=== PATIENT | female | born 1990 | race Caucasian/White ===

== ENCOUNTER 2019-07-04 12:12 | Outpatient (REF) | payer BC, MEDICAID, SELFPAY ==
--- NOTE | 2019-07-04 09:05 | PAPFT_PTH ---
PATIENT: Gila Nickerson LOC: [facility]#:[id number] AGE/SX: 29/F ROOM: RE07/04/[address]: Micheal Hester : 1990 BED: DIS: 07/04/2019 SPEC #: [id number] RECD: 07/05/19 12:49 STATUS: CHRISTIAN DELA CRUZ #: [id number] CARRIE: 07/04/19 09:[address]: Micheal Hester DEPT: [facility] Cytology RECD BY: Jazlyn Hernandez Tissues: 1 - CX/ENDOCX FOR PAP SMEARS Procedures: PAP THIN PREP/UVM Screening HPV DNA PROBE Comments: [id number]
== END 2019-07-04 12:32 ==
LOC: NCHCN 12:12
PROVIDERS: PCP Physician Assistant Medical; Visit Provider Physician Assistant Medical
DX: Z12.4 Encounter for screening for malignant neoplasm of cervix (principal); Z11.51 Encounter for screening for human papillomavirus (HPV)
CPT/HCPCS: 88142; 87624

== ENCOUNTER 2019-08-23 09:12 | Outpatient (CLI) | payer BC, MEDICAID, SELFPAY ==
[2019-08-26 08:15] LABS: SARS-CoV-2 RNA Undetected (Undetected); SARS-CoV-2 Specimen Source Nasopharynx
== END 2019-08-23 09:32 ==
PROVIDERS: PCP Physician Assistant Medical; Visit Provider Physician Assistant Medical
DX: Z11.59 Encounter for screening for other viral diseases (principal)
CPT/HCPCS: U0003

== ENCOUNTER 2019-09-15 23:52 | Emergency (ER) | payer BC, MEDICAID, SELFPAY ==
--- NOTE | 2019-09-15 23:45 | DI.RAD_ITS ---
EXAM: XR HAND LT COMPLETE CLINICAL HISTORY: pain s/p fall. TECHNIQUE: 2D digital imaging was performed. COMPARISON: No exams were available for comparison FINDINGS: BONES: There is a comminuted fracture through the base of the proximal phalanx of the index finger. Fracture extends into the metacarpophalangeal joint. No bony destructive lesion is seen. JOINTS: No dislocation present. SOFT TISSUE: Swelling of the soft tissues of the left index finger. IMPRESSION: Comminuted intra-articular fracture through the base of the proximal phalanx of the left index finger . DATA REPOSITORY: RADIATION DOSE DELIVERED:
[2019-09-15 23:56] VITALS: BP 156/90; PULSE 78; RESP 16; TEMP 36.5; O2SAT 98
--- NOTE | 2019-09-15 23:57 | ED.GENADUL_ITS ---
Discharge Plan Disposition Patient Disposition: HOME Condition: Stable Discharge Details Chief Complaint: Orthopedic Clinical Impression: Hand fracture, left Primary Care Provider: Micheal Hester ED Provider: Gato Arechiga Home Meds and New Rx's Prescriptions: Continued norgestimate-ethinyl estradiol [Tri-Sprintec (28)] 0.18/0.215/0.25 mg-35 mcg (28) tablet 1 tab PO DAILY Qty: 84 RF: 3 sertraline 25 MG tablet 50 mg PO DAILY RF: 0 valacyclovir 1,000 MG tablet 1,000 mg PO BID Qty: 20 RF: 0 Discharge Instructions Instructions: Hand Fracture (ED) Additional Instructions: call orthopedics tuesday for an appointment if you have severe worsening pain return to the emergency department you can take 1000mg tylenol and 600mg ibuprofen every 6 hours for pain as needed Referrals: Richard Roman MD [ [facility] STAFF PHYSICIAN] - Medical Decision Making 29 yo female comes in with left hand pain that started after she was helping her daughter ride a bike when she fell and landed on her left hand. No head pain, neck pain or pain elsewhere other than the left hand. At the base of the index and middle finger is swollen and tender, does have full extension of the fingers but flexion at mcp joints limited due to pain is able to flex at the pip and dip joints normally and has normal pulses. Will xray to eval for fx xray shows nondisplaced fx at proximal 2nd digit.Placed in finger splint and will have her f/u with ortho Differential Diagnosis Differential Diagnosis: contusion, fracture Imaging Data Radiologic Study: Attestation: I personally reviewed and interpreted this imaging study as follows: Imaging: X-Ray Radiologist's impression: IMPRESSION: Comminuted hairline fracture at the base of the proximal phalanx of the 2nd digit with intra-articular extension of the fracture. HPI General Mode of arrival: ambulatory . Date/Time Provider Initiated Documentation: 09/15/19 23:56 . Limitations to Documentation: no limitations . Information obtained by: patient . History of Present Illness 29 year old F presents to the emergency department with the chief complaint of left hand pain, described as moderate, Quality is described as aching, and is localized to the left and upper extremity. Patient started experiencing this hour(s) (1) and it has been constant. No relieving factors improve symptom(s), No exacerbating factors reported . Patient did receive the following treatments prior to arrival, NSAID Related Data Home Medications Medication Instructions Recorded Confirmed sertraline 50 mg PO DAILY 06/28/15 09/16/19 valacyclovir 1,000 mg PO BID #20 tab 06/28/15 09/16/19 norgestimate-ethinyl estradiol 1 tab PO DAILY #84 tab 03/17/18 09/16/19 Previous Rx's Medication Instructions Recorded valacyclovir 1,000 mg PO BID #20 tab 06/28/15 norgestimate-ethinyl estradiol 1 tab PO DAILY #84 tab 03/17/18 Allergies Allergy/AdvReac Type Severity Reaction Status Date / Time No Known Allergies Allergy Unverified 09/16/19 00:01 Review of Systems All systems reviewed & are unremarkable except as noted in HPI and below Constitutional Constitutional: Denies chills and Denies fever(s) Cardiovascular Cardiovascular: Denies chest pain and Denies dyspnea Respiratory Respiratory: Denies dyspnea Gastrointestinal Gastrointestinal: Denies abdominal pain and Denies vomiting [facility] Social History (Updated 03/15/18 @ 11:34 by Adilia Lizarraga LPN) Smoking/Tobacco Use Status: Current every day Tobacco Type: cigarettes Alcohol Intake: current Alcohol Intake frequency: a few times a month Drug use: Never Substance use type: does not use Household members: family and other Details: Partner Donny and daughters Ximena and Marce Number of Children: 2 Seatbelt use: always Do you feel safe at home: Yes Do you feel safe in your relationship?: Yes Female Reproductive History Menstrual control method: pills History History 2 Para Hx # Term Pregnancies 2 Multiple births Hx # Pregnancies Ectopic pregnancies AB induced Hx Number of Living Children AB spontaneous Exam Const General: no acute distress Orientation: alert HENMT Head: normal to inspection Ears: external ears normal General nose exam: external nose normal Mouth: moist mucous membranes Eyes General: appearance normal, both eyes and all related structures Neck Neck: normal visual inspection Resp Effort & Inspection: normal respiratory effort and able to speak in complete sentences Cardio Rate: regular rate Skin General skin exam: no rashes or lesions noted Neuro General: patient alert and patient oriented x3 Extrem General: full ROM and capillary refill normal Psych Mental Status: mental status grossly normal
--- NOTE | 2019-09-16 00:16 | DI.VRAD_ITS ---
PROCEDURE INFORMATION: Exam: XR Left Hand Exam date and time: 09/15/2019 12:05 AM Age: 29 years old Clinical indication: Hand; Left; Patient HX: Pain S/P fall TECHNIQUE: Imaging protocol: XR Left hand. Views: 3 or more views. COMPARISON: No relevant prior studies available. FINDINGS: Bones/joints: Comminuted hairline fracture at the base of the proximal phalanx of the 2nd digit with intra-articular extension of the fracture. Soft tissues: Normal. IMPRESSION: Comminuted hairline fracture at the base of the proximal phalanx of the 2nd digit with intra-articular extension of the fracture. Dictated and Authenticated by: Garrett Ordaz MD. Ordering:GEETA Hoskins MD
== END 2019-09-16 00:35 | disposition home or self-care (01) ==
PROVIDERS: Emergency Provider Emergency Medicine; PCP Physician Assistant Medical
DX: S63.641A Sprain of metacarpophalangeal joint of right thumb, initial encounter (principal); W01.0XXA Fall on same level from slipping, tripping and stumbling without subsequent striking against object, initial encounter
CPT/HCPCS: 99283; 73130

== ENCOUNTER 2019-10-17 09:29 | Outpatient (CLI) | payer BC, MEDICAID, SELFPAY ==
--- NOTE | 2019-10-17 09:15 | DI.RAD_ITS ---
EXAM: XR FINGER LT INDEX INDICATION: F/U FRACTURE. COMPARISON: CR,XR XR HAND LT COMPLETE from 09/16/2019 TECHNIQUE: 2D digital imaging was performed. FINDINGS: There has been no change in alignment of the previously noted fracture at the base of the proximal p halanx of the index finger. DATA REPOSITORY: RADIATION DOSE DELIVERED:
== END 2019-10-17 09:49 ==
PROVIDERS: PCP Physician Assistant Medical; Referring Provider Physician Assistant Medical; Visit Provider Orthopaedic Surgery
DX: S62.641D Nondisplaced fracture of proximal phalanx of left index finger, subsequent encounter for fracture with routine healing (principal)
CPT/HCPCS: 73140

== ENCOUNTER 2020-07-04 19:58 | Outpatient (REF) | payer BC, MEDICAID, SELFPAY ==
[2020-07-04 19:42] LABS: HCG Qual (Serum) Positive
== END 2020-07-04 19:59 | disposition home or self-care (01) ==
LOC: NCHCN 19:58
PROVIDERS: PCP Physician Assistant Medical; Visit Provider Physician Assistant Medical
DX: N91.1 Secondary amenorrhea (principal)
CPT/HCPCS: 84703

== ENCOUNTER 2020-08-20 03:32 | Outpatient (CLI) | payer BC, MEDICAID, SELFPAY ==
[2020-08-20 14:34] LABS: Kit/Specimen SENT
[2020-08-20 14:38] LABS: Abs Immature Grans 0.04 10^3/uL (0.0-0.06); Absolute Basophil Count 0.06 10^3/uL (0.0-0.2); Absolute Eosinophil Count 0.09 10^3/uL (0.0-0.7); Absolute Monocyte Count 0.72 10^3/uL (0.1-0.8); Absolute Neutrophil Count 7.74 10^3/uL (1.2-6.7); Basophils % 0.6; Eosinophils % 0.8; HCT 39.2 % (36.0-46.0); HGB 12.9 g/dL (11.2-15.7); Immature Grans % 0.4; Lymphocytes % 18.8; MCH 30.1 pg (27.0-33.0); MCHC 32.9 % (32.0-36.0); MCV 91.4 fL (80-95); MPV 9.2 fL (8.0-11.0); Monocytes % 6.8; Neutrophils % 72.6; Nucleated RBC 0 %; Platelet Count 270 10^3/uL (130-400); RBC 4.29 10^6/uL (3.93-5.22); RDW 13.4 % (11.7-14.6); RDW-SD 44.7 fL; WBC 10.65 10^3/uL (4.4-10.8)
[2020-08-20 15:18] LABS: TSH (W/Ref FT4) 0.94 uIU/mL (0.36-3.74)
[2020-08-20 16:09] LABS: *AMPHETAMINES SCREEN URINE Negative (Negative); *BARBITURATES SCREEN URINE Negative (Negative); *BENZODIAZEPINES SCREEN URINE Negative (Negative); Cannabinoids THC Negative (Negative); Cocaine Screen,Urine Negative (Negative); METHADONE URINE SCREEN Negative (Negative); OPIATES URINE SCREEN Negative (Negative)
[2020-08-20 16:43] LABS: Tricyclic Antidepressants Negative (Negative)
[2020-08-21 08:58] LABS: Hepatitis B Surface Ag Negative (Negative)
[2020-08-21 09:36] LABS: HIV-1/2 Ag & Ab Screen Negative (Negative)
[2020-08-21 09:52] LABS: Varicella IgG Antibody Positive (See Note)
[2020-08-21 09:58] LABS: Rubella IgG Ab (UVM) Positive (See Note)
[2020-08-21 10:00] LABS: Hepatitis C Ab w Rflx HCV PCR Negative (Negative)
[2020-08-21 14:50] LABS: Chlamydia Result Negative (Negative); GC Result Negative (Negative)
[2020-08-21 23:26] LABS: Syphilis Total Ab w/Reflex Nonreactive (Nonreactive)
[2020-08-26 11:53] LABS: Buprenorphine Negative ng/mL (Cutoff: 5.0); Norbuprenorphine Negative ng/mL (Cutoff: 2.5)
== END 2020-08-20 03:33 | disposition home or self-care (01) ==
PROVIDERS: PCP Physician Assistant Medical; Visit Provider Advanced Practice Midwife
DX: Z34.91 Encounter for supervision of normal pregnancy, unspecified, first trimester (principal); Z11.4 Encounter for screening for human immunodeficiency virus [HIV]; Z11.59 Encounter for screening for other viral diseases; Z11.3 Encounter for screening for infections with a predominantly sexual mode of transmission; Z01.84 Encounter for antibody response examination
CPT/HCPCS: 80307; 86787; 86803; 86850; 86900; 86901; 87340; 87389; 87491; 87591; 84443; 85025; 86762; 86780; 87086; 87480; 87510; 87660

== ENCOUNTER 2020-12-16 03:39 | Outpatient (CLI) | payer BC, MEDICAID, SELFPAY ==
[2020-12-16 16:14] LABS: HCT 33.3 % (36.0-46.0); HGB 10.8 g/dL (11.2-15.7); MCH 30.4 pg (27.0-33.0); MCHC 32.4 % (32.0-36.0); MCV 93.8 fL (80-95); MPV 9.2 fL (8.0-11.0); Platelet Count 249 10^3/uL (130-400); RBC 3.55 10^6/uL (3.93-5.22); RDW 13.6 % (11.7-14.6); RDW-SD 46.5 fL; WBC 11.81 10^3/uL (4.4-10.8)
[2020-12-16 16:28] LABS: Glucose,1 Hr (Glucola) 107 mg/dL (80-140)
== END 2020-12-16 03:40 | disposition home or self-care (01) ==
LOC: LBO 03:39
PROVIDERS: PCP Physician Assistant Medical; Visit Provider Advanced Practice Midwife
DX: Z34.92 Encounter for supervision of normal pregnancy, unspecified, second trimester (principal); Z3A.27 27 weeks gestation of pregnancy; Z01.84 Encounter for antibody response examination
CPT/HCPCS: 36415; 82950; 85027; 86850; 90384

== ENCOUNTER 2021-02-18 10:03 | Outpatient (REF) | payer BC, MEDICAID, SELFPAY ==
[2021-02-18 12:51] LABS: Tricyclic Antidepressants Negative (Negative)
[2021-02-18 12:56] LABS: *AMPHETAMINES SCREEN URINE Negative (Negative); *BARBITURATES SCREEN URINE Negative (Negative); *BENZODIAZEPINES SCREEN URINE Negative (Negative); Cannabinoids THC Negative (Negative); Cocaine Screen,Urine Negative (Negative); METHADONE URINE SCREEN Negative (Negative); OPIATES URINE SCREEN Negative (Negative)
[2021-02-24 19:41] LABS: Buprenorphine Negative ng/mL (Cutoff: 5.0); Norbuprenorphine Negative ng/mL (Cutoff: 2.5)
== END 2021-02-18 10:04 | disposition home or self-care (01) ==
LOC: LBN 10:03
PROVIDERS: PCP Physician Assistant Medical; Visit Provider Advanced Practice Midwife
DX: Z34.93 Encounter for supervision of normal pregnancy, unspecified, third trimester (principal); Z3A.36 36 weeks gestation of pregnancy
CPT/HCPCS: 80307; 87081

== ENCOUNTER 2021-03-11 10:36 | Outpatient (CLI) | payer BC, MEDICAID, SELFPAY ==
[2021-03-11 10:56] VITALS: BP 126/87; PULSE 68; TEMP 36.6
[2021-03-11 11:02] VITALS: BP 126/87; PULSE 68
[2021-03-11 11:24] VITALS: BP 132/88; PULSE 66
[2021-03-11 11:47] LABS: HCT 38.8 % (36.0-46.0); HGB 12.7 g/dL (11.2-15.7); MCH 31.3 pg (27.0-33.0); MCHC 32.7 % (32.0-36.0); MCV 95.6 fL (80-95); Platelet Count 217 10^3/uL (130-400); RBC 4.06 10^6/uL (3.93-5.22); RDW-SD 49.6 fL; WBC 9.43 10^3/uL (4.4-10.8)
[2021-03-11 12:04] LABS: ALT 17 U/L (14-59); AST 21 U/L (15-37); Albumin 2.8 g/dL (3.4-5.0); Alkaline Phosphatase 225 U/L (46-116); Anion Gap 8.1 mmol/L (3-11); BUN 6 mg/dL (7-18); Bilirubin, Total 0.3 mg/dL (0.2-1.0); CO2 24.9 mmol/L (21.0-32.0); CREATININE 0.5 mg/dL (0.55-1.02); Calcium 9.4 mg/dL (8.5-10.1); Chloride 104 mmol/L (98-107); Glucose 72 mg/dL (74-106); Sodium 137 mmol/L (136-145); Total Protein 6.8 g/dL (6.4-8.2); Uric Acid 3.7 mg/dL (2.6-6.0)
[2021-03-11 13:07] LABS: COMMENT (LAB VIEW ONLY) 19.21 mg/dL; PROTEIN < 6.0 mg/dL
--- NOTE | 2021-03-13 15:50 | W.OBNST ---
Date of service: 03/11/21 Time of Service: 12:00 NST Evaluation Reason for NST Reasons for Nonstress Test: GESTATIONAL HYPERTENSION Reason for NST Other: Pt states she has only had two high BPs, both after drinking coffee. Gestational Age Gestational Age in Weeks and Days: 38 Weeks and 5Days Test and Monitor Explained Test/Monitor Explained: Test Explained, Monitor Explained and Patient Verbalized Understanding Vital Signs Blood Pressure: 126/87 Pulse: 68 Temperature: 97.8 F Urine Results Urine Protein: Negative Urine Ketones: Negative Urine Glucose: Negative Urine Blood: Negative NST Information Date on Monitor: 03/11/21 Time on Monitor: 10:45 NST Interventions: PO Hydration NST Evaluation Patient States Movement: Present FHR Baseline: 130 Variability: Moderate 6-25 bpm Accelerations: 15x15 Decelerations: None NST Results: Reactive Note NST Note Note: preeclampsia panel taken and castro was discharged to home to await lab results. SVE 2 cms 60% effaced and firm/posterior. Signs of labor reviewed. Signs of preeclampsia reviewed. NST Reviewed and Verified by: Katya Hurley
[2021-03-13 15:51] VITALS: BP 126/87; PULSE 68; TEMP 36.6
== END 2021-03-11 11:40 | disposition home or self-care (01) ==
LOC: BCD 10:41 → OBS 10:45
PROVIDERS: Advanced Practice Midwife; PCP Physician Assistant Medical; Visit Provider Advanced Practice Midwife
DX: O13.3 Gestational [pregnancy-induced] hypertension without significant proteinuria, third trimester (principal); Z3A.38 38 weeks gestation of pregnancy
CPT/HCPCS: 59025; 36415; 80053; 85027; 82565; 84156; 84550

== ENCOUNTER 2021-03-13 09:01 | Inpatient (IN) | payer BC, MEDICAID, SELFPAY ==
[2021-03-13] VITALS (13 sets, daily range): BP systolic 110–140; BP diastolic 76–91; PULSE 70–87; RESP 16; TEMP 36.6–36.9
--- NOTE | 2021-03-13 12:18 | HPE_ITS ---
Date of service: 03/13/21 Time of Service: 12:19 Assessment and Plan Assessment and plan (1) Spontaneous onset of labor: Status: Acute Assessment and plan: Admit to Center. Comfort measures. Covid- 19 test. Anticipate . OB-HPI Labor/Delivery History of Present Illness Reason for Visit: Labor Chief Complaint: Uterine Contractions. SAMANTHA Calculator Estimated Delivery Date Method Current WG Current Estimate 03/15/21 LMP (Certain) 39w 5d Other Estimates 03/21/21 Ultrasound #1 38w 6d Comments: Gila was admitted to observation with regular contractions. Her contractions are now stronger and there is cervical change noted and she is admitted in active labor. History of Present Expected Delivery Route/Plan - CNM FOB - Rubio Olmos (third child together) BG GBS negative Would like to use the tub Specific Issues/Plan 1. 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 second labor precipitous 2 hours but 7 years ago 3. Rh negative: RhoGam @ 28 wks, given 12/17/20 4. [place] result low prob x3, female, declines CF/SMA screen 5. Gila declines covid vaccine, her partner is fully vaccinated 6. Planning vasectomy for Rubio 7. varicose vein on inside of right knee, discussed montioring anemia - Hgb 10.4- taking blood builder Assessment: History Reviewed & Current [facility] Medical History (Updated 03/13/21 @ 12:23 by Katya Hurley CNM) Contraceptive management 06/2016 Mirena inserted. Depression Genital herpes Pelvic pain episode 05/2016. 37mm cyst R ovary. Family History (Updated 08/20/20 @ 14:00 by Katya Love CNM) Maternal Grandmother Hypertension FH: thyroid disease Mother Hypertension Father Asthma Cancer passed age 46 from unknown CA type Social History (Updated 08/20/20 @ 13:08 by Katya Love CNM) Smoking/Tobacco Use Status: Current every day Tobacco Type: cigarettes Tobacco: How many years used: 4 Smoking risk assessment performed?: Yes Alcohol Intake: current Alcohol Intake frequency: a few times a month Drug use: Never Substance use type: does not use Household members: family and other Details: Partner Donny and daughters Ximena and Marce Number of Children: 2 Seatbelt use: always Do you feel safe at home: Yes Do you feel safe in your relationship?: Yes Female Reproductive History Menstrual control method: pills History History 4 Para 2 Hx # Term Pregnancies 2 Multiple births 0 Hx # Pregnancies 0 Ectopic pregnancies 0 AB induced 0 Hx Number of Living Children 2 AB spontaneous 1 Past Pregnancies Del. Date GA/Weeks # Outcome Route Wgt Sex Labor Lgth Anesthes ia Location Prov Complic 04/25/10 38 No Successful vaginal 7 lb 13 oz Female 8hr Hussein 09/25/13 39 No Successful vaginal 8 lb 3 oz Female 2 hr Fabby 10/21/16 Unsuccessful Delivery Date: 04/25/10 no complications Katya Rodriguez Delivery Date: 09/25/13 no complications. FelicityKatya Murphy Delivery Date: 10/21/16 conception on OCs Katya Hurley Meds Allergies and Home Medications Allergies Allergy/AdvReac Type Severity Reaction Status Date / Time No Known Allergies Allergy Unverified 03/11/21 09:41 Home Medications Medication Instructions Recorded Confirmed Type sertraline 50 mg PO DAILY 06/28/15 03/13/21 History flinstone 2 tab PO 08/07/20 02/25/21 History valacyclovir 500 mg tablet 500 mg PO DAILY PRN 10/22/20 03/13/21 History Blood builder 1 tab .ROUTE QDAY #60 tab 01/28/21 03/13/21 Rx Exam Physical Exam Vital signs: Temp Pulse Resp BP 98.4 F 74 16 137/86 03/13/21 09:13 03/13/21 09:41 03/13/21 09:13 03/13/21 09:41 Vital Signs Reviewed: Yes Constitutional Constitutional: mild distress Detailed Labor and Delivery Exam Dilation: 3 Effacement (%): 80 station: -1 Cervix position: posterior Consistency: soft Ratliff Score: Cervical Points Exam 0 1 2 3 Dilation Closed 1-2cm 3-4 cm 5-6cm Effacement 0-30% 40-50% 60-70% 80% Consistency Firm Medium Soft Station -3 -2 -1,0 +1,+2 Position Posterior Mid Anterior Amniotic Membrane Status: Intact Contraction Frequency(min): every 3-4 Contraction Duration(sec): 50-60 Contraction Intensity: Moderate Fetus A Heart Rate Baseline: 130 Monitor Accelerations: 15 X 15 Monitor Decelerations: None Variability: Moderate (6-25 BPM) Presentation: Cephalic Categories: Category I Est. Weight: 7 Respiratory Exam Respiratory Exam: Normal Cardiovascular Exam Cardiovascular Exam: Normal Abdominal Exam Abdominal Exam: Normal Rectal Exam Rectal Exam: Normal Exam Exam: Normal Skin Exam Skin Exam: Normal Psychiatric Exam Psychiatric Exam: Normal Risk Assessment Risk for Shoulder Dystocia Historical/Initial OB: NEGATIVE FOR: Pelvic Abnormality, Pre- BMI>30, Previous Shoulder Dystocia or Previous Macrosomia 40 Weeks: NEGATIVE FOR: EFW> 4500 gms, Maternal Weight Gain >40lb or Post Dates Increased Risk?: No Date/Initial: 08/20/20 Risk for Pre-Eclampsia Daily Dose ASA Indicated: No Date Initiated/Initials: 08/20/20 Yes, if one or more: NEGATIVE FOR: Hx Pre-E/Gest HTN, Chronic HTN, Multiple Gestation, Pre-gestational DM, Renal Disease, Systemic Lupus or APA Syndrome Yes, if 2 or more: NEGATIVE FOR: Nulliparity, Age>= 35 yrs, >10yr btwn pregnancies, BMI>30, ethinicty, Mother/Sister w/ Pre-E or Previous IUGR Risk for Post- Hemorrhage Initial: NEGATIVE FOR: Multiple Gestation, Previous PPH, Known Clotting Deficiency, Grand Multiparity or Anticoagulation At Risk?: No Interventions: 08/20/20 Risks Reviewed Risks Reviewed Upon Admission: Yes
[2021-03-13 12:58] LABS: HCT 36.3 % (36.0-46.0); HGB 12.1 g/dL (11.2-15.7); MCH 31.9 pg (27.0-33.0); MCHC 33.3 % (32.0-36.0); MCV 95.8 fL (80-95); MPV 10.1 fL (8.0-11.0); Platelet Count 209 10^3/uL (130-400); RBC 3.79 10^6/uL (3.93-5.22); RDW-SD 49.6 fL; WBC 12.07 10^3/uL (4.4-10.8)
[2021-03-13] MEDS: Oxytocin 10 UNITS/ML VIAL IM (14:38)
--- NOTE | 2021-03-13 14:38 | PLAC_PTH ---
PATIENT: Gila Nickerson LOC: OBS U#:[id number] AGE/SX: 31/F ROOM: OBS.304 RE03/13/[address]: Katya Hurley : 1990 BED: A DIS: 03/14/2021 SPEC #: [id number] RECD: 03/13/21 17:37 STATUS: CHRISTIAN REQ #: [id number] CARRIE: 03/13/21 14:[address]: Katya Hurley DEPT: Surgical Specimen RECD BY: Jazlyn Hernandez ENTERED: 03/13/21 17:37 SP TYPE: PLAC OTHR DR: Micheal Hester Tissues: 1 - PLACENTA (3RD TRIMESTER) Procedures: GROSS AND MICRO LEVEL 5 Comments: [id number]
--- NOTE | 2021-03-13 15:11 | W.OBDELIVERY ---
Date of service: 03/13/21 Time of Service: 15:11 OB Labor/ Delivery Information Baby A Delivery Delivery Method: Spontaneaous Presentation: Vertex Cephalic Position: Vertex Vertex Position: Left Occipital Anterior Cord Description-Baby A: 3 Vessels Amniotic Fluid: Meconium (light) Estimated Blood Loss: 450 Delivery Outcome: Liveborn Infant Transferred: Remains with Mother Note: FHTs 120s during first stage of labor. Began having an urge to bear down and Gila was examined and 8 cms dilated. FHTs 120s in second stage by auscultation. Progressed quickly to full dilation and began pushing. Second stage huddle was done. There was a gush of light meconium stained fluid after bearing down. Five minutes after ROM, there was spontaneous delivery of female delivered in ALPHONSO position. Baby was placed on mother's abdomen and dried and stimulated. Spontaneous cry. Cord was clamped and cut by the baby's father. The placenta delivered spontaneously and appears to by intact with a three vessel cord. It is a bilobed placenta with connecting vessels. The placenta inserted in one lobe with vessels extending to second lobe with one vessel in the membranes. Pitocin 10 units was administered after delivery of the placenta. The bleeding was bright and heavy with massage and 800 mcg of misoprostol was given VT. A bimanual exam was performed with extraction of 100 cc of clots from the cervix. The perineum was inspected and a small perineal laceration was repaired with 3 continuous 3-0 vicryl sutre under local anesthetic. The baby did breastfeed. After delivery, Mother and baby and father of the baby were stable and bonding well in the delivery room and there were no complications. Stages of Labor Onset of Labor Date: 03/13/21 Onset of Labor Time: 06:30 ROM Baby A: 03/13/21 ROM Baby A: 14:23 Procedure Procedures: Evacuation of Hematoma (Bimanual exam and approximately 100 cc of clots extracted from the cervix) Interventions Repair of Laceration Type: Perineal , Laceration Extension: First Degree . Sponge Count Correct: No Sponges Placed in Vagina , Sharp Count Correct: Yes . Laceration Repair Note: repaired with 3-0 vicryl suture under local anesthetic x 3 continuous sutures
[2021-03-13] MEDS: miSOPROStol 200 MCG TAB 400 MCG SL (15:18)
[2021-03-13] MEDS: Lidocaine 1% Multi-Dose 20 ML VIAL IJ (15:20)
[2021-03-13] MEDS: Acetaminophen 325 MG TAB 650 MG PO ×2 (15:52→22:10)
[2021-03-13] MEDS: Ibuprofen 600 MG TAB PO ×2 (15:52→22:09)
[2021-03-13 22:44] LABS: Source Nasal/Nares
[2021-03-13 23:45] LABS: COVID-19 PCR Negative (Negative)
[2021-03-14] MEDS: Ibuprofen 600 MG TAB PO (06:00)
[2021-03-14] MEDS: Acetaminophen 325 MG TAB 650 MG PO (06:00)
[2021-03-14 07:38] LABS: HCT 32.6 % (36.0-46.0); HGB 10.9 g/dL (11.2-15.7); MCH 31.7 pg (27.0-33.0); MCHC 33.4 % (32.0-36.0); MCV 94.8 fL (80-95); MPV 9.9 fL (8.0-11.0); Platelet Count 183 10^3/uL (130-400); RBC 3.44 10^6/uL (3.93-5.22); RDW 14.1 % (11.7-14.6); RDW-SD 48.4 fL; WBC 12.62 10^3/uL (4.4-10.8)
[2021-03-14 08:15] VITALS: BP 133/85; PULSE 67; RESP 16; TEMP 36.5
[2021-03-14] MEDS: Docusate Sodium 100 MG CAP PO (08:28)
--- NOTE | 2021-03-14 14:36 | W.PM.OBDISCH ---
Date of service: 03/14/21 Time of Service: 14:36 DS: Diagnosis Discharge Diagnosis (1) Spontaneous onset of labor: Status: Acute Asessment and Plan: Caring for baby independently. Pain is managed well with oral analgesics. Voiding without difficulty. well. Family requests discharge today and baby is discharged. A - stable mother and baby , Post day 1, RH neg P - Discharge to home today. Routine post instructions. [facility] Receiving rhogam prior to discharge. Discharge Plan Disposition Condition: Good Discharge Details Reason For Visit: Labor Admit Date/Time: 03/13/21 12:18 Admit Provider: Katya Hurley Attending Provider: Katya Hurley Primary Care Provider: Micheal Hester Home Meds and New Rx's Prescriptions: Continued flinstone 2 tab PO DAILY RF: 0 sertraline 25 MG tablet 50 mg PO DAILY RF: 0 Discontinued valacyclovir 500 mg tablet 500 mg PO DAILY PRNRF: 0 Blood builder 1 tab .ROUTE QDAY Qty: 60 RF: 0 Discharge Instructions Activity:: Activity as Tolerated Activity:: Activity as Tolerated Equipment/Supplies:: No Equipment Needed Diet:: As Tolerated OB:DS Summary Summary Vaginal Delivery Method: Spontaneaous Episiotomy Description: None Laceration Description: Perineal Laceration Extension: First Degree complications OB DS: none Contraception Discussed Contraception Discussed: Yes Contraceptive Plan: Control Pill/Patch, [place] Gender-Baby A: Female Status at Discharge Functional status at discharge: independent ambulation Overall status at discharge: patient is back to baseline Mental Status: mental status grossly normal Speech and Movement: speech and movement normal Mood: congruent mood Affect: normal affect Exam Physical Exam Vital signs: Temp Pulse Resp BP 97.7 F 67 16 133/85 03/14/21 08:15 03/14/21 08:15 03/14/21 08:15 03/14/21 08:15 Vital Signs Reviewed: Yes Constitutional Constitutional: no acute distress Respiratory Exam Respiratory Exam: Normal Cardiovascular Exam Cardiovascular Exam: Normal Fundal Exam Fundus: Below Umbilicus and Firm Rectal Exam Rectal Exam: Normal Exam Patient deferred: external exam External: Present normal urethra appearance Comments: no edema, no ecchymosis Extremities Exam Extremity Exam: Normal Skin Exam Skin Exam: Normal Psychiatric Exam Psychiatric Exam: Normal [facility] Medical History (Updated 03/13/21 @ 12:23 by Katya Hurley CNM) Contraceptive management 06/2016 Mirena inserted. Depression Genital herpes Pelvic pain episode 05/2016. 37mm cyst R ovary. Family History (Updated 08/20/20 @ 14:00 by Katya Love CNM) Maternal Grandmother Hypertension FH: thyroid disease Mother Hypertension Father Asthma Cancer passed age 46 from unknown CA type Social History (Updated 08/20/20 @ 13:08 by Katya Love CNM) Smoking/Tobacco Use Status: Current every day Tobacco Type: cigarettes Tobacco: How many years used: 4 Smoking risk assessment performed?: Yes Alcohol Intake: current Alcohol Intake frequency: a few times a month Drug use: Never Substance use type: does not use Household members: family and other Details: Partner Donny and daughters Landry Number of Children: 2 Seatbelt use: always Do you feel safe at home: Yes Do you feel safe in your relationship?: Yes Female Reproductive History Menstrual control method: pills History History 4 Para 2 Hx # Term Pregnancies 2 Multiple births 0 Hx # Pregnancies 0 Ectopic pregnancies 0 AB induced 0 Hx Number of Living Children 2 AB spontaneous 1 Past Pregnancies Del. Date GA/Weeks # Outcome Route Wgt Sex Labor Lgth Anesthesia Location Prov Complic 04/25/10 38 No Successful vaginal 7 lb 13 oz Female 8hr Hussein 09/25/13 39 No Successful vaginal 8 lb 3 oz Female 2 hr Fabby 10/21/16 Unsuccessful Delivery Date: 04/25/10 no complications Katya Rodriguez Delivery Date: 09/25/13 no complications. Katya Patricia Delivery Date: 10/21/16 conception on OCs Katya Hurley DS: Data Vitals/I&O Vitals and I&O: Vital Signs Temperature 97.7 F 03/14/21 08:15 Pulse 67 03/14/21 08:15 Pulse Rhythm Regular 03/14/21 08:15 Respiratory Rate 16 03/14/21 08:15 Respiratory Depth Normal 03/14/21 08:15 Blood Pressure 133/85 03/14/21 08:15 Blood Pressure Mean 101 03/14/21 08:15 Oxygen Delivery Method Room Air 03/13/21 10:28 Oxygen Flow Rate 0 03/13/21 10:28 Pain Level 2 03/13/21 22:09 Intake & Output 03/13/21 03/14/21 03/14/21 23:59 11:59 23:59 Output Total 500 / 900 Balance -500 / -900 Output: Urine 500 / 900 Other: Urine Color Yellow Data Completed and Pending Labs on day of discharge: Labs from last 24 hours 03/14/21 03/13/21 07:31 22:43 WBC 12.62 H RBC 3.44 L Hgb 10.9 L Hct 32.6 L MCV 94.8 MCH 31.7 MCHC 33.4 RDW 14.1 Plt Count 183 MPV 9.9 COVID-19 Source Nasal/Nares SARS-CoV-2 (PCR) Negative
--- NOTE | 2021-03-16 15:51 | W.OBDELIVERY ---
Date of service: 03/13/21 Time of Service: 15:51 OB Labor/ Delivery Information Baby A Delivery Note: Date of service: 03/13/21 Time of Service: 15:11 OB Labor/ Delivery Information Baby A Delivery Delivery Method: Spontaneaous Presentation: Vertex Cephalic Position: Vertex Vertex Position: Left Occipital Anterior Cord Description-Baby A: 3 Vessels Amniotic Fluid: Meconium (light) Estimated Blood Loss: 450 Delivery Outcome: Liveborn Transferred: Remains with Mother Note: FHTs 120s during first stage of labor. Began having an urge to bear down and Gila was examined and 8 cms dilated. FHTs 120s in second stage by auscultation. Progressed quickly to full dilation and began pushing. Second stage huddle was done. There was a gush of light meconium stained fluid after bearing down. Five minutes after ROM, there was spontaneous delivery of female delivered in ALPHONSO position. Baby was placed on mother's abdomen and dried and stimulated. Spontaneous cry. Cord was clamped and cut by the baby's father. The placenta delivered spontaneously and appears to by intact with a three vessel cord. It is a bilobed placenta with connecting vessels. The placenta inserted in one lobe with vessels extending to second lobe with one vessel in the membranes. Pitocin 10 units was administered after delivery of the placenta. The bleeding was bright and heavy with massage and 800 mcg of misoprostol was given LA. A bimanual exam was performed with extraction of 100 cc of clots from the cervix. The perineum was inspected and a small perineal laceration was repaired with 3 continuous 3-0 vicryl sutre under local anesthetic. The baby did breastfeed. After delivery, Mother and baby and father of the baby were stable and bonding well in the delivery room and there were no complications. Stages of Labor Onset of Labor Date: 03/13/21 Onset of Labor Time: 06:30 ROM Baby A: 03/13/21 ROM Baby A: 14:23 Providers Nurse Christmas Tree Grader: Katya Hurley Nurse: Bridger Barreto Nurse: Andrew Blanchard Labor/Delivery Information Steroids Given: None Reason Steroids Not Administered: N/A Group Beta Strep: Negative Antibiotics Administered: No Medication in Delivery: pitocin IM misoprostil 800 mcg Shoulder Dystocia: No Stages of Labor Onset of Labor Date: 03/13/21 Onset of Labor Time: 06:30 Complete Dilatation Date: 03/13/21 Complete Dilatation Time: 14:22 Labor - Stage 1 Duration: 0 minutes ROM Baby A: 03/13/21 ROM Baby A: 14:23 ROM Total Time- Baby A: [id number] Infant Delivery Date-Baby A: 03/13/21 Delivery Time-Baby A: 14:26 Labor Stage 2 Duration: 4 minutes Placenta Delivery Date-Baby A: 03/13/21 Placenta Delivery Time-Baby A: 14:38 Labor-Stage 3 Duration: 12 minutes Total Length of Labor-Baby A: 7 hours and 56 minutes Placenta Status: Delivered Baby A Gender: Female Gestational Status: Term (39-41.6 wks) Gestational Age in Weeks/Days: 38 Weeks and 5 Days Score-1 Minute Interval(Baby A) Heart Rate-1 minute: 100 BPM or Greater Respiratory Effort- 1 minute: Spontaneous/Strong Cry Muscle Tone-1 minute: Active Movement Reflex Response-1 minute: Prompt Response Color-1 minute: Pallor or Cyanosis Total Score-1 minute: 8 Score-5 Minute Interval(Baby A) Heart Rate- 5 minute: 100 BPM or Greater Respiratory Effort-5 minute: Spontaneous/Strong Cry Muscle Tone-5 minute: Active Movement Reflex Response-5 minute: Prompt Response Color-5 minute: Bluish Hands or Feet Total Score- 5 minute: 9 Procedure Procedures: Evacuation of Hematoma (Evacuation of Hematoma (Bimanual exam and approximately 100 cc of clots extracted from the cervix)) Interventions Repair of Laceration Type: Perineal , Laceration Extension: First Degree . Sponge Count Correct: No Sponges Placed in Vagina , Sharp Count Correct: Yes . Laceration Repair Note: repaired with 3-0 vicryl suture under local anesthetic x 3 continuous sutures Hemorrrhage Note Total Blood Loss for PPH Event Quantitative Blood Loss: 450
== END 2021-03-14 16:17 | disposition home or self-care (01) | DRG 806 ==
PROVIDERS: Admitting Provider Advanced Practice Midwife; PCP Physician Assistant Medical; Visit Provider Advanced Practice Midwife
DX: O98.32 Other infections with a predominantly sexual mode of transmission complicating childbirth (principal); O36.0930 Maternal care for other rhesus isoimmunization, third trimester, not applicable or unspecified; Z37.0 Single live birth; O71.7 Obstetric hematoma of pelvis; O77.0 Labor and delivery complicated by meconium in amniotic fluid; O70.0 First degree perineal laceration during delivery; A60.00 Herpesviral infection of urogenital system, unspecified; O99.02 Anemia complicating childbirth; D64.9 Anemia, unspecified; O99.344 Other mental disorders complicating childbirth; F32.A Depression, unspecified; O99.334 Smoking (tobacco) complicating childbirth; F17.210 Nicotine dependence, cigarettes, uncomplicated; O43.193 Other malformation of placenta, third trimester; Z3A.39 39 weeks gestation of pregnancy; Z20.822 Contact with and (suspected) exposure to COVID-19
CPT/HCPCS: 36415; 85027; 85461; 86850; 86900; 86901; 87635; 90384; 88307; G0378; J2590; J2790

== ENCOUNTER 2021-09-14 19:50 | Outpatient (REF) | payer BC, MEDICAID, SELFPAY ==
[2021-09-14 15:29] LABS: Abs Immature Grans 0.01 10^3/uL (0.0-0.06); Absolute Basophil Count 0.09 10^3/uL (0.0-0.2); Absolute Eosinophil Count 0.15 10^3/uL (0.0-0.7); Absolute Lymphocyte Count 2.17 10^3/uL (1.2-3.4); Absolute Monocyte Count 0.45 10^3/uL (0.1-0.8); Absolute Neutrophil Count 2.97 10^3/uL (1.2-6.7); Basophils % 1.5; Eosinophils % 2.6; HCT 39.5 % (36.0-46.0); HGB 12.6 g/dL (11.2-15.7); Immature Grans % 0.2; Lymphocytes % 37.2; MCH 29.7 pg (27.0-33.0); MCHC 31.9 % (32.0-36.0); MCV 93.2 fL (80-95); MPV 9.6 fL (8.0-11.0); Monocytes % 7.7; Neutrophils % 50.8; Platelet Count 264 10^3/uL (130-400); RBC 4.24 10^6/uL (3.93-5.22); RDW 13.4 % (11.7-14.6); WBC 5.84 10^3/uL (4.4-10.8)
[2021-09-14 15:43] LABS: Calculated LDL 131 mg/dL (<100); Cholesterol 216 mg/dL (<200); HDL Cholesterol 75 mg/dL (40-60); Triglyceride 51 mg/dL (<150)
== END 2021-09-14 19:51 | disposition home or self-care (01) ==
LOC: NCHCN 19:50
PROVIDERS: PCP Physician Assistant Medical; Visit Provider Physician Assistant Medical
DX: Z00.00 Encounter for general adult medical examination without abnormal findings (principal); Z13.220 Encounter for screening for lipoid disorders
CPT/HCPCS: 80061; 85025

== ENCOUNTER 2022-07-05 15:46 | Outpatient (REF) | payer BC, MEDICAID, SELFPAY | END 2022-07-05 15:47 | disposition home or self-care (01) | LOC: NCHCN 15:46 | PROVIDERS: PCP Physician Assistant Medical; Visit Provider Family Medicine | DX: L29.8 Other pruritus (principal) | CPT/HCPCS: 87480; 87510; 87660 ==

== ENCOUNTER 2022-08-03 09:52 | Outpatient (REF) | payer BC, MEDICAID, SELFPAY | END 2022-08-03 09:53 | disposition home or self-care (01) | LOC: NCHCN 09:52 | PROVIDERS: PCP Physician Assistant Medical; Visit Provider Family Medicine | DX: L29.2 Pruritus vulvae (principal) | CPT/HCPCS: 87086; 87480; 87510; 87660 ==

== ENCOUNTER 2022-08-13 14:11 | Outpatient (REF) | payer BC, MEDICAID, SELFPAY | END 2022-08-13 14:12 | disposition home or self-care (01) | LOC: NCHCN 14:11 | PROVIDERS: PCP Physician Assistant Medical; Visit Provider Physician Assistant Medical | DX: R30.0 Dysuria (principal) | CPT/HCPCS: 87086 ==

== ENCOUNTER 2023-06-13 10:46 | Outpatient (REF) | payer BC, SELFPAY | END 2023-06-13 10:47 | disposition home or self-care (01) | LOC: NCHCN 10:46 | PROVIDERS: PCP Physician Assistant Medical; Visit Provider Nurse Practitioner Family | DX: N76.0 Acute vaginitis (principal) | CPT/HCPCS: 87480; 87510; 87660 ==

== ENCOUNTER 2023-08-05 14:26 | Outpatient (REF) | payer BC, SELFPAY | END 2023-08-05 14:27 | disposition home or self-care (01) | LOC: NCHCN 14:26 | PROVIDERS: PCP Physician Assistant Medical; Referring Provider Physician Assistant Medical; Visit Provider Physician Assistant Medical | DX: N89.8 Other specified noninflammatory disorders of vagina (principal) | CPT/HCPCS: 87480; 87510; 87660 ==

== ENCOUNTER 2023-09-06 19:36 | Outpatient (REF) | payer BC, SELFPAY | END 2023-09-06 19:37 | disposition home or self-care (01) | LOC: NCHCN 19:36 | PROVIDERS: PCP Physician Assistant Medical; Visit Provider Physician Assistant Medical | DX: N76.0 Acute vaginitis (principal) | CPT/HCPCS: 87480; 87510; 87660 ==

== ENCOUNTER 2023-10-04 16:32 | Outpatient (REF) | payer BC, SELFPAY | END 2023-10-04 16:33 | disposition home or self-care (01) | LOC: NCHCN 16:32 | PROVIDERS: PCP Physician Assistant Medical; Visit Provider Physician Assistant Medical | DX: N76.0 Acute vaginitis (principal) | CPT/HCPCS: 87480; 87510; 87660 ==

== ENCOUNTER 2024-03-08 18:24 | Outpatient (REF) | payer MEDICAID, SELFPAY ==
[2024-03-08 21:03] LABS: Bilirubin Negative (Negative); Blood Trace-intact (Negative); Clarity Clear (Clear); Glucose Negative (Negative); Ketones Negative (Negative); Leukocyte Esterase Negative (Negative); Nitrite Negative (Negative); Urobilinogen 0.2 mg/dL (Up to 0.2)
[2024-03-08 21:05] LABS: Bacteria Rare HPF (Negative); C & S Indicated? No; Casts Negative LPF (Negative); Crystals Negative HPF (Negative); Epithelial Cells Moderate HPF (Negative); Mucus Negative (Negative); RBC 0-2 HPF (0-2); WBC Negative HPF (0-5)
== END 2024-03-08 18:25 | disposition home or self-care (01) ==
LOC: LBN 18:24
PROVIDERS: PCP Physician Assistant Medical; Visit Provider Nurse Practitioner Family
DX: R39.9 Unspecified symptoms and signs involving the genitourinary system (principal); R30.0 Dysuria; N39.0 Urinary tract infection, site not specified
CPT/HCPCS: 81003; 81015; 87480; 87510; 87660

== ENCOUNTER 2024-03-29 02:55 | Outpatient (CLI) | payer BC, MEDICAID, SELFPAY ==
--- NOTE | 2024-03-29 08:13 | DI.US_ITS ---
Exam(s) US PELVIS TRANSVAGINAL EXAM: US PELVIS TRANSVAGINAL CLINICAL HISTORY: dyspareunia, recurrent acute vaginitis,n76.0,z87.42 TECHNIQUE: Transabdominal and transvaginal imaging was performed using standard protocol. COMPARISON: CT ABD PELVIS WITH CONTRAST from 06/09/2016 US PELVIS TRANSVAG from 06/16/2016 FINDINGS: The bladder is unremarkable. UTERUS: Retroverted, 6.9 x 3.4 x 4.8 cm Endometrium: 5 mm , homogeneous Myometrium: Unremarkable. Cervix: Unremarkable. OVARIES: Right: Cyst or mass: 1.9 centimeter para ovarian cyst. Left: Cyst or mass: None. DOPPLER: Color: Symmetric and uniform flow to both ovaries. No hyperemia. CUL-DE-SAC: Free fluid: Trace IMPRESSION: 1. Normal-appearing uterus with endometrial stripe within normal limits. 2. Unremarkable left ovary. 1.9 centimeter right para ovarian cyst. DATA REPOSITORY:
== END 2024-03-29 03:15 ==
PROVIDERS: PCP Physician Assistant Medical; Visit Provider Obstetrics & Gynecology Gynecology
DX: Z87.42 Personal history of other diseases of the female genital tract (principal); N76.0 Acute vaginitis
CPT/HCPCS: 76830; 76856

== ENCOUNTER 2025-03-05 15:21 | Outpatient (REF) | payer BC, SELFPAY ==
--- NOTE | 2025-03-05 14:30 | PAPFT_PTH ---
PATIENT: Gila Nickerson LOC: [facility]#:[id number] AGE/SX: 35/F ROOM: RE03/05/[address]: Micheal Hester : 1990 BED: DIS: 03/05/2025 SPEC #: [id number] RECD: 03/05/25 17:20 STATUS: CHRISTIAN REAmauri #: [id number] CARRIE: 03/05/25 14:[address]: Micheal Hester DEPT[facility] Cytology RECD BY: Claudia Hunt Tissues: 1 - CX/ENDOCX FOR PAP SMEARS Procedures: PAP THIN PREP/[facility] Screening HPV DNA PROBE Comments: [id number] (HPV 16 & 18/45)
== END 2025-03-05 15:22 | disposition home or self-care (01) ==
LOC: NCHCN 15:21
PROVIDERS: PCP Physician Assistant Medical; Visit Provider Physician Assistant Medical
DX: Z12.4 Encounter for screening for malignant neoplasm of cervix (principal)
CPT/HCPCS: 88142; 87624